=== PATIENT | male | born 1990 | race Caucasian/White ===

== ENCOUNTER 2020-12-08 11:26 | Emergency (ER) | payer SELFPAY ==
[~2020-12-08] VITALS: Ht 193 cm; Wt 99.0 kg
[2020-12-08] MEDS ORDERED: ONDANSETRON HCL 4MG/2ML INJ IV STA (11:35)
[2020-12-08] MEDS ORDERED: FAMOTIDINE 20MG/2ML VIAL IV STA (11:35)
[2020-12-08] MEDS ORDERED: LORAZEPAM 2MG/ML CPJ IV ONE (11:45)
[2020-12-08] MEDS ORDERED: SODIUM CHLORIDE 0.9% 1,000 ML IV ONE (11:45)
[2020-12-08 11:57] LABS: BASOPHILS % 0.3 % (0.0-2.0); EOSINOPHILS % 0.5 % (0.0-5.0); HEMATOCRIT. 43.9 % (42.0-52.0); HEMOGLOBIN. 15.8 g/dL (14.0-18.0); LYMPHOCYTES % 13.3 % (20.0-50.0); MEAN CORPUSCULAR HEMOGLOBIN 31.9 pg (28.0-32.0); MEAN CORPUSCULAR VOLUME 88.3 fL (80.0-94.0); MEAN PLATELET VOLUME 7.3 fl (7.4-10.4); MONOCYTES % 4.3 % (2.0-8.0); NEUTROPHILS % 81.6 % (40.0-76.0); PLATELET 235 x1000/uL (130-400); RED BLOOD CELL COUNT 4.97 mill/uL (4.7-6.1)
[2020-12-08 12:02] LABS: CHLORIDE 98 mEq/L (98-107)
[2020-12-08 12:06] LABS: ETHANOL BLOOD 136 mg/dL; PROTHROMBIN TIME 10.4 sec (9.6-11.0)
[2020-12-08 13:26] LABS: CLARITY URINE CLEAR (CLEAR); COLOR URINE DARK YELLOW (YELLOW); KETONES URINE 3+ (NEGATIVE); LEUKOCYTE ESTERASE URINE TRACE (NEGATIVE); NITRITE URINE NEGATIVE (NEGATIVE); OCCULT BLOOD URINE NEGATIVE (NEGATIVE); PROTEIN URINE 2+ (NEGATIVE); SPECIFIC GRAVITY URINE 1.038 (1.005-1.030)
[2020-12-08 13:36] LABS: *AMPHETAMINES SCREEN URINE NEGATIVE (NEGATIVE); *BARBITURATES SCREEN URINE NEGATIVE (NEGATIVE); *BENZODIAZEPINES SCREEN URINE NEGATIVE (NEGATIVE)
[2020-12-08 13:37] LABS: CANNABINOID URINE SCREEN PRESUMTIVE POSITIVE (NEGATIVE); METHADONE URINE SCREEN NEGATIVE (NEGATIVE); OPIATES URINE SCREEN NEGATIVE (NEGATIVE); PHENCYCLIDINE URINE SCREEN NEGATIVE (NEGATIVE)
[2020-12-08 13:39] LABS: *COCAINE SCREEN URINE NEGATIVE (NEGATIVE)
[2020-12-08] MEDS ORDERED: KETOROLAC 30MG/ML VIAL IV ONE (15:15)
[2020-12-08] MEDS ORDERED: MAGNESIUM/ALUMINUM HYDROXIDE/SIMETHICONE 30ML UDC PO ONE (15:15)
[2020-12-08] MEDS ORDERED: OMEP20CA14 MT (15:31)
[2020-12-08] MEDS ORDERED: ONDA4TAB5 MT (15:31)
[2020-12-08] MEDS ORDERED: NITR-87 MT (15:31)
[2020-12-08 15:57] VITALS: BP 124/80
== END 2020-12-08 16:00 | disposition home or self-care (01) ==
LOC: ER 11:26
DX: F10.129 Alcohol abuse with intoxication, unspecified (principal); R10.33 Periumbilical pain; R11.10 Vomiting, unspecified; F17.210 Nicotine dependence, cigarettes, uncomplicated; Y90.6 Blood alcohol level of 120-199 mg/100 ml; H54.61 Unqualified visual loss, right eye, normal vision left eye; Z71.6 Tobacco abuse counseling; Z87.81 Personal history of (healed) traumatic fracture; Z98.890 Other specified postprocedural states
CPT/HCPCS: 36415; 71045; 74176; 80053; 80305; 80320; 81003; 83690; 85025; 85610; 96361; 96374; 96375; 99285; J1885; J2060; J2405; J3490; J7030; Z7610; G0480